=== PATIENT | female | born 1950 | race Caucasian/White ===

== ENCOUNTER 2020-09-13 11:51 | Emergency (ER) | payer MEDICARE, OTHER ==
[~2020-09-13] VITALS: Ht 175 cm; Wt 94.0 kg
--- NOTE | 2020-09-13 12:22 | ED Upper Extremity ---
General Chief Complaint: Upper Extremity Stated Complaint: HURT WRIST Source: patient Exam Limitations: no limitations History of Present Illness Date Seen by Provider: Sep 13, 2020 Time Seen by Provider: 12:20 Initial Comments To ER with C/o left wrist swelling and pain after falling last night while intoxicated. Is from [place] and moving to [place], granddaughter lives here. Is on quarantine for covid, is positive. Onset: just prior to arrival Severity: moderate Pain/Injury Location: left wrist Method of Injury: fell Modifying Factors: Worse With Movement Allergies and Home Medications Allergies Coded Allergies: No Known Drug Allergies (Unverified , 09/13/20) Home Medications Hydrocodone/Acetaminophen 1 Each Tablet, 1 EACH PO Q4H PRN for PAIN-MODERATE (5- 7) Prescribed by: SKIP ANGUIANO on 09/13/20 1241 Patient Home Medication List Home Medication List Reviewed: Yes Review of Systems Constitutional: see HPI EENTM: see HPI Respiratory: no symptoms reported Cardiovascular: no symptoms reported Genitourinary: no symptoms reported Musculoskeletal: see HPI Skin: no symptoms reported Past Sbtffop-Ctihfr-Qkhlhl Hx Patient Social History Alcohol Use: Denies Use Recreational Drug Use: No Smoking Status: Never a Smoker Recent Foreign Travel: No Contact w/Someone Who Travel: No Physical Exam Vital Signs Vital Signs - First Documented 09/13/20 12:18 Temp 37.0 Pulse 97 Resp 18 B/P (MAP) 146/84 (104) Pulse Ox 95 Capillary Refill : Height, Weight, BMI Height: '" Weight: lbs. oz. kg; BMI Method: General Appearance: WD/WN, no apparent distress HEENT: PERRL/EOMI, normal ENT inspection Respiratory: no respiratory distress, no accessory muscle use Shoulder: normal inspection, non-tender Elbow/Forearm: normal inspection, non-tender Wrist: Yes limited ROM, Yes pain, Yes swelling Hand: normal inspection, non-tender Neurologic/Psychiatric: alert, normal mood/affect, oriented x 3 Skin: normal color, warm/dry Progress/Results/Core Measures Results/Orders My Orders Orders - SKIP ANGUIANO APRN Wrist, Left, 3 Views Or More (09/13/20 12:19) Vital Signs/I&O 09/13/20 12:18 Temp 37.0 Pulse 97 Resp 18 B/P (MAP) 146/84 (104) Pulse Ox 95 Departure Communication (Admissions) Family Conversation She retains brisk capillary refill and sensation at the fingertips. NAME: GEORGES FLORES I [facility] REC#: [id number] PT STATUS: REG ER : 1950 PHYSICIAN: SKIP ANGUIANO APRN ADMIT DATE: 09/13/20/ER Draft Date of Exam:09/13/20 WRIST, LEFT, 3 VIEWS OR MORE Left wrist at 1227h. INDICATION: Fell 3 views were obtained. There are no prior studies available for comparison There is a slightly impacted fracture of the distal metaphysis. In addition there is an oblique fracture extending through the distal radial diaphysis. This fracture is essentially nondisplaced. There may be another fracture line extending through the medial aspect of the articular surface of the distal radius. If further evaluation of the extent of the injury to to the distal radius is desired, then CT would be recommended. No other fracture or acute bony abnormality noted. The soft tissues are unremarkable. IMPRESSION: 1. There is a complex essentially nondisplaced fracture of the distal radial diaphysis/metaphysis. If further evaluation is desired, then CT would be recommended. 2. There is no acute bony abnormality noted otherwise. Dictated on workstation # [id number] Dict: 09/13/20 1228 Trans: 09/13/20 1235 [facility] [id number] Interpreted by: ROJELIO GILLIS MD Electronically signed by: Impression Primary Impression: Distal radius fracture Disposition: 01 HOME, SELF-CARE Condition: Stable Departure-Patient Inst. Decision time for Depature: 12:39 Referrals: MALIK DUVALL MD, MICHAEL P MD Patient Instructions: Radius Fracture Add. Discharge Instructions: Keep this splint on clean and dry at all times. Put a trash bag over the arm to keep the splint dry during bathing. Follow-up with orthopedics within 1 to 2 weeks and they will likely swap out the splint for a cast. Take the pain medication as directed. Keep the fingertips elevated as much as possible. All discharge instructions reviewed with patient and/or family. Voiced understanding. Scripts Hydrocodone/Acetaminophen (Hydrocodone-Acetamin 5-325 mg) 1 Each Tablet 1 EACH PO Q4H PRN for PAIN-MODERATE (5-7), #14 TAB Prov: SKIP ANGUIANO APRN 09/13/20 SKIP ANGUIANO APRN Sep 13, 2020 12:22
--- NOTE | 2020-09-13 12:36 | Diagnostic Imaging Report ---
Left wrist at 1227h. INDICATION: Fell 3 views were obtained. There are no prior studies available for comparison There is a slightly impacted fracture of the distal metaphysis. In addition there is an oblique fracture extending through the distal radial diaphysis. This fracture is essentially nondisplaced. There may be another fracture line extending through the medial aspect of the articular surface of the distal radius. If further evaluation of the extent of the injury to to the distal radius is desired, then CT would be recommended. No other fracture or acute bony abnormality noted. The soft tissues are unremarkable. IMPRESSION: 1. There is a complex essentially nondisplaced fracture of the distal radial diaphysis/metaphysis. If further evaluation is desired, then CT would be recommended. 2. There is no acute bony abnormality noted otherwise. Dictated by: Dictated on workstation # [id number]
[2020-09-13] MEDS ORDERED: ACHD5005 PO (12:41)
[2020-09-13] MEDS ORDERED: RX-HYDROCODONE/APAP 5/325 MG #4 TAB PK PO PRN (12:45)
[2020-09-13 12:50] VITALS: BP 146/84
== END 2020-09-13 12:50 | disposition home or self-care (01) ==
LOC: ER 11:55
DX: S52.335A Nondisplaced oblique fracture of shaft of left radius, initial encounter for closed fracture (principal); W18.39XA Other fall on same level, initial encounter
CPT/HCPCS: 29125; 73110; 99284; A4565